=== PATIENT | female | born 1950 | race Caucasian/White ===

== ENCOUNTER 2018-06-21 09:28 | Inpatient (IN) | payer MEDICARE, BC ==
[2018-06-17 12:41] LABS: BASOPHILS % (AUTO) 0.5 % (0-1); EOSINOPHILS % (AUTO) 0.9 % (0-6); LYMPHOCYTES # (AUTO) 1.3 X10'3 (1.1-4.8); LYMPHOCYTES % (AUTO) 30.2 % (21-51); MEAN CORPUSCULAR HEMOGLOBIN 30.1 PG (27.0-31.0); MEAN CORPUSCULAR HGB CONC 34.1 g/dL (33.0-36.5); MEAN CORPUSCULAR VOLUME 88.2 FL (78-98); MEAN PLATELET VOLUME 7.6 FL (7.4-10.4); MONOCYTES # (AUTO) 0.4 X10'3 (0-0.9); MONOCYTES % (AUTO) 8.6 % (2-12); NEUTROPHILS # (AUTO) 2.6 X10'3 (1.8-7.7); NEUTROPHILS % (AUTO) 59.8 % (42-75); PRE OP HEMATOCRIT 42.7 % (35.0-45.0); PRE OP HEMOGLOBIN 14.6 g/dL (12.0-16.0); PRE OP PLATELET COUNT 205 X10'3 (140-440); RED BLOOD COUNT 4.85 X10'6 (4.20-5.60); RED CELL DISTRIBUTION WIDTH 13.3 % (11.5-14.5)
[2018-06-17 12:59] LABS: ALBUMIN 3.3 G/DL (3.4-5.0); ALBUMIN/GLOBULIN RATIO 0.9 (1.1-1.5); ALKALINE PHOSPHATASE 106 IU/L (46-116); BLOOD UREA NITROGEN 15 MG/DL (7-18); BUN/CREATININE RATIO 18.5 (6.6-38.0); CALCIUM 9.1 MG/DL (8.5-10.1); CHLORIDE 107 MMOL/L (99-107); CREATININE 0.81 MG/DL (0.40-0.90); PRE OP ANION GAP 6 (8-16); PRE OP AST 61 U/L (10-37); PRE OP BILIRUB, TOTAL 0.5 MG/DL (0.0-1.0); PRE OP GLUCOSE 88 MG/DL (70-104); PRE OP POTASSIUM 4.1 MMOL/L (3.4-5.1); PRE OP SODIUM 142 MMOL/L (135-145); TOTAL CARBON DIOXIDE 28.7 MMOL/L (24-32); TOTAL PROTEIN 7.1 G/DL (6.4-8.2); eGFR 70 ML/MIN
[2018-06-17 13:01] LABS: PRE OP ALT 83 U/L (30-65)
[2018-06-17 13:18] LABS: PRE OP PROTIME 10.5 SECONDS (9.0-12.0)
[2018-06-21] VITALS (19 sets, daily range): BP systolic 131–164; BP diastolic 64–89
[~2018-06-21] VITALS: Ht 160 cm; Wt 72.1 kg
[~2018-06-21 09:28] MED LIST: CALC-1051 PO; CHOL10002 PO; LEVO100T PO; MINO50CA5 PO; MULT-933 PO; OMEP20TA5 PO; ceFAZolin 2gm in dextrose, iso 100 ML IV ONE; famotidine 20mg tablet PO ONE; ringers solution, lacted 1,000 ML IV SCH; vancomycin inj 1,500 MG in normal saline 300ml IV soln IV ONE
[2018-06-21] MEDS ORDERED: IBUP-1985 PO (10:12)
[2018-06-21] MEDS ORDERED: ROPIVAcaine 0.5% (5mg/ml) 30ml vial ONE ×2 (14:10→14:22)
[2018-06-21] MEDS ORDERED: ketorolac trometh. 30mg/ml inj. ONE (14:10)
[2018-06-21] MEDS ORDERED: MIDAZolam 5mg/5ml vial ONE (14:27)
[2018-06-21] MEDS ORDERED: fentaNYL/PF 50MCG/1 ML 2ML syringe ONE (14:27)
[2018-06-21] MEDS ORDERED: propofol inj 20 ML IV ONE (14:29)
[2018-06-21] MEDS ORDERED: tranexamic acid inj. 720 MG in normal saline 100ml IV soln 100 ML IV ONE ×4 (14:30)
[2018-06-21] MEDS ORDERED: sevoflurane 250ml liquid IH ONE (14:36)
[2018-06-21] MEDS ORDERED: ROPIVAcaine 0.2%/PF PAIN PUMP 550 ML IJ SCH (16:21)
[2018-06-21] MEDS ORDERED: ringers solution, lacted 1,000 ML IV SCH (16:21)
[2018-06-21] MEDS ORDERED: meperidine/PF 25mg/ml syringe IV PRN ×3 (16:25)
[2018-06-21] MEDS ORDERED: ondansetron/PF 4mg/2ml inj IV PRN ×2 (16:25→17:10)
[2018-06-21] MEDS ORDERED: morphine 4 MG/ML inj SYRINge IV PRN ×2 (16:25)
[2018-06-21] MEDS ORDERED: proCHLORperazine 10 MG/2 ml inj IV PRN (16:25)
[2018-06-21] MEDS ORDERED: diphenhydrAMINE 25mg capsule PO PRN ×2 (17:10)
[2018-06-21] MEDS ORDERED: HYDROmorphone 1 mg/ml syringe IV PRN (17:10)
[2018-06-21] MEDS ORDERED: bisacodyl 10mg suppository rectal RC PRN (17:10)
[2018-06-21] MEDS ORDERED: acetaminophen 325mg tablet PO PRN (17:10)
[2018-06-21] MEDS ORDERED: oxyCODONE IR 5mg (immed. release) tablet PO PRN ×2 (17:10)
[2018-06-21] MEDS ORDERED: HYDROmorphone inj. 0.5 MG/0.5 ML DISP.SYRIN IV PRN (17:10)
[2018-06-21] MEDS ORDERED: magnesium hydroxide 30ml (MOM) UD suspension PO PRN (17:10)
--- NOTE | 2018-06-21 17:19 | NUR ---
Received from OR via BED, accompanied by Anesthesiologist DR LIU and report given by Anesthesiologist. PT DROWSY, DENIES PAIN, LEFT SHOULDER W/DRSG, ICE PACK, SHOULDER WRAP, SLING, INTERSCALENE CATHETER, CDI, FINGERS PWD. Addendum: 06/21/18 at 1743 by Tamra Vasquez RN Amended: Links added.
[2018-06-21] MEDS ORDERED: labetalol 20mg/4ml (5mg/ml) syringe IV PRN (18:10)
--- NOTE | 2018-06-21 18:39 | NUR ---
Report called to receiving nurse. Transferred via BED, 1 BAG OF Belongings, GLASSES SENT W/PT TO ROOM [facility], RECEIVING RN AT BEDSIDE TO RECEIVE PT, BLL, CALL LIGHT GIVEN, SIDE RAILS UP X 2, AT BEDSIDE. Special Issues communicated to receiving nurse. YES. Addendum: 06/21/18 at 1846 by Tamra Vasquez RN Amended: Links added.
[2018-06-21] MEDS: potassium cl 20mEq in 1/2 NS 1,000 ML IV SCH (19:42)
[2018-06-21] MEDS ORDERED: non-formulary drug (Calcium Carbonate/Vitamin D3 (Calcium 500 + D Tablet) 1 TAB) PO SCH (20:00)
[2018-06-21] MEDS ORDERED: MINOCYCLINE HCL PO SCH (20:00)
[2018-06-21] MEDS ORDERED: vancomycin/NS 1 GM ADD-VANTAGE 250 ML IV SCH (20:00)
[2018-06-21] MEDS ORDERED: non-formulary drug (Cholecalciferol (Vitamin D3) (Vitamin D3) 2 TAB) PO SCH (20:00)
[2018-06-21] MEDS ORDERED: tranexamic acid inj. 750 MG in normal saline 100ml IV soln 100 ML IV ONE (20:10)
[2018-06-21] MEDS ORDERED: sennosides 8.6mg tablet PO SCH (21:00)
[2018-06-21] MEDS: vitamin D (cholecalciferol) 1,000 unit tablet PO SCH (21:13)
[2018-06-21] MEDS: calcium carbonate/vitamin D3 tablet PO SCH (21:14)
[2018-06-21] MEDS: acetaminophen 325mg tablet PO SCH (21:14)
[2018-06-21] MEDS: ceFAZolin 1GM/D5W- ADD-VANTAGE 50 ML IV SCH (23:59)
[2018-06-22] MEDS: potassium cl 20mEq in 1/2 NS 1,000 ML IV SCH (01:07)
[2018-06-22] MEDS: acetaminophen 325mg tablet PO SCH ×2 (02:07→08:16)
[2018-06-22 02:25] VITALS: BP 113/60
[2018-06-22 06:00] VITALS: BP 122/64
--- NOTE | 2018-06-22 06:37 | NUR ---
Problems reprioritized. Patient report given, questions answered & plan of care reviewed with ESTEFANIA López.
[2018-06-22 07:15] LABS: BASOPHILS % (AUTO) 0.1 % (0-1); EOSINOPHILS % (AUTO) 0 % (0-6); HEMATOCRIT 40.7 % (35.0-45.0); HEMOGLOBIN 13.8 g/dl (12.0-16.0); LYMPHOCYTES # (AUTO) 0.9 X10'3 (1.1-4.8); LYMPHOCYTES % (AUTO) 7.9 % (21-51); MEAN CORPUSCULAR HEMOGLOBIN 29.9 PG (27.0-31.0); MEAN CORPUSCULAR VOLUME 87.9 FL (78-98); MEAN PLATELET VOLUME 7.9 FL (7.4-10.4); MONOCYTES # (AUTO) 0.9 X10'3 (0-0.9); MONOCYTES % (AUTO) 7.8 % (2-12); NEUTROPHILS # (AUTO) 9.9 X10'3 (1.8-7.7); NEUTROPHILS % (AUTO) 84.2 % (42-75); PLATELET COUNT 244 X10'3 (140-440); RED BLOOD COUNT 4.63 X10'6 (4.20-5.60); RED CELL DISTRIBUTION WIDTH 13.5 % (11.5-14.5); WHITE BLOOD COUNT 11.7 X10'3 (4.5-11.0)
[2018-06-22 07:22] LABS: ANION GAP 10 (8-16); CHLORIDE 108 MMOL/L (99-107); POTASSIUM 4.1 MMOL/L (3.5-5.1); SODIUM 142 MMOL/L (135-145); TOTAL CARBON DIOXIDE 23.9 MMOL/L (24-32)
[2018-06-22] MEDS ORDERED: pantoprazole 40mg Tablet.DR PO SCH (07:30)
[2018-06-22] MEDS ORDERED: multivitamins, therapeutics tablet PO SCH (08:00)
[2018-06-22] MEDS ORDERED: levoTHYROXINE 25mcg tablet PO SCH (08:00)
[2018-06-22] MEDS ORDERED: non-formulary drug (Multivitamin (One Daily Multivitamin) 1 TAB) PO SCH (08:00)
[2018-06-22] MEDS ORDERED: non-formulary drug (Omeprazole 1 TAB) PO SCH (08:00)
[2018-06-22] MEDS: calcium carbonate/vitamin D3 tablet PO SCH (08:17)
[2018-06-22] MEDS: vitamin D (cholecalciferol) 1,000 unit tablet PO SCH (08:17)
[2018-06-22] MEDS: ceFAZolin 1GM/D5W- ADD-VANTAGE 50 ML IV SCH (08:18)
[2018-06-22] MEDS ORDERED: aspirin 325mg tablet PO SCH (08:30)
[2018-06-22] MEDS ORDERED: celeCOXIB 100mg capsule PO SCH (20:00)
[2018-06-23] MEDS ORDERED: acetaminophen 325mg tablet PO PRN (17:10)
== END 2018-06-22 10:25 | disposition home or self-care (01) | DRG 483 ==
LOC: PAS IN 09:28 → EDSTATUS 11:45 → ORTHO 4S 18:39
PROVIDERS: ADMIT Orthopaedic Surgery; ATTEND Orthopaedic Surgery
PROC: 0LS40ZZ Reposition Left Upper Arm Tendon, Open Approach (ICD-10-PCS; 2018-06-21)
PROC: 3E0T3BZ Introduction of Anesthetic Agent into Peripheral Nerves and Plexi, Percutaneous Approach (ICD-10-PCS; 2018-06-21)
PROC: 0RRK0JZ Replacement of Left Shoulder Joint with Synthetic Substitute, Open Approach (ICD-10-PCS; principal; 2018-06-21 14:36)
DX: M19.012 Primary osteoarthritis, left shoulder (principal); M75.22 Bicipital tendinitis, left shoulder; E03.9 Hypothyroidism, unspecified; G89.29 Other chronic pain
CPT/HCPCS: 36415; 80051; 80053; 82948; 84443; 85025; 85610; 85730; 87070; 97110; 97116; 97161; A4565; A7000; C1713; C1776; G0378; J0690; J1885; J2250; J2704; J2795; J3010; J3370; J7030; J7040; J7120